=== PATIENT | female | born 2000 | race Caucasian/White ===

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

== ENCOUNTER 2018-01-10 16:17 | Emergency (ER) | payer MEDICAID ==
[2018-01-10] MEDS ORDERED: SODIUM CHLORIDE 0.9% 1,000 ML IV STA ×2 (17:48)
--- NOTE | 2018-01-10 17:52 | ED ---
Chest Pain HPI - General Chief Complaint: Chest Pain Stated Complaint: Heart Racing Time Seen by Provider: 01/10/18 17:43 Source: patient, RN notes reviewed, old records reviewed Mode of arrival: ambulatory Limitations: no limitations - History of Present Illness Initial Comments: 17-year-old female presents emergency department today chief complaint of chest pain and episodes of shortness breath and heart racing that started at 11 AM today. Patient reports that she did feel somewhat nauseous at the time this occurred. She did feel somewhat dizzy and lightheaded. She denies any or drink very much today. She denies any episodes of vomiting. She does have history of VSD. 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 No history of asthma. She is an occasional smoker. Denies any other symptoms at this time. - Related Data Allergies Allergy/AdvReac Type Severity Reaction Status Date / Time No Known Allergies Allergy Verified 01/10/18 16:52 Review of Systems ROS Statement: Those systems with pertinent positive or pertinent negative responses have been documented in the HPI. ROS Other: All systems not noted in ROS Statement are negative. EKG Findings - EKG Comments: EKG Findings:: EKG performed at 1646 shows normal sinus rhythm normally daily. Ventricularly of 83 bpm. NE interval is 136 ms. QRS religious 90 ms. QT QTc is 358/420 ms. No evidence of ST elevation or T-wave inversion. No evidence of atrial ventricular arrhythmias. Past Medical History Past Medical History: No Reported History Additional Past Medical History / Comment(s): VSD History of Any Multi-Drug Resistant Organisms: None Reported Past Surgical History: No Surgical Hx Reported Past Psychological History: No Psychological Hx Reported Smoking Status: Current some day smoker Past Alcohol Use History: Rare Past Drug Use History: None Reported General Exam - General Exam Comments Initial Comments: This is a 17-year-old female. Alert and oriented. No acute distress. Limitations: no limitations General appearance: alert, in no apparent distress Head exam: Present: atraumatic, normocephalic, normal inspection Eye exam: Present: normal appearance, PERRL, EOMI. Absent: scleral icterus, conjunctival injection, periorbital swelling ENT exam: Present: normal exam, mucous membranes moist Neck exam: Present: normal inspection Respiratory exam: Present: normal lung sounds bilaterally. Absent: respiratory distress, wheezes, rales, rhonchi, stridor Cardiovascular Exam: Present: normal rhythm, normal heart sounds, systolic murmur. Absent: diastolic murmur, rubs, gallop, clicks GI/Abdominal exam: Present: soft, normal bowel sounds. Absent: distended, tenderness, guarding, rebound, rigid Extremities exam: Present: normal inspection, full ROM, normal capillary refill. Absent: tenderness, pedal edema, joint swelling, calf tenderness Back exam: Present: normal inspection Neurological exam: Present: alert, oriented X3, CN II-XII intact Psychiatric exam: Present: normal affect, normal mood Skin exam: Present: warm, dry, intact, normal color. Absent: rash Course Vital Signs 01/10/18 01/10/18 16:49 19:00 Temperature 98.3 F Pulse Rate 89 84 Respiratory 18 18 Rate Blood Pressure 120/77 122/83 O2 Sat by Pulse 98 97 Oximetry Chest Pain MDM - MDM This Patient 17-year-old female presents with episodes of heart racing chest pain earlier today. She reports the symptoms started resolving upon arrival. Patient states that she's had no fevers or chills no other symptoms. At this time she reports just feels very tired. She does report that she has been quite anxious that she is moving in the next couple weeks. Did a cardiac workup on her. EKG was reviewed and normal. Vital signs are stable. Troponins negative. I did test and d-dimer. Status of his mildly elevated. She denies any leg pain or any other symptoms concerning for a blood clot appearance on any control. Patient states that she refuses CT at this time. I discussed that with her symptoms resolving she feels by the time very low probability of positive for blood clot. Patient agrees. She will follow up with primary care physician. All questions answered return parameters were discussed. Chest x-rays negative for any acute process. Disposition Clinical Impression: Atypical chest pain, Dizziness Disposition: HOME SELF-CARE Condition: Good Instructions: Chest Pain (ED), Generalized Anxiety Disorder (ED) Additional Instructions: Patient has a follow-up with primary care physician within the next 1-2 days. Return to emergency department if any alarming signs or symptoms occur. Is patient prescribed a controlled substance at d/c from ED?: No When asked, does pt state using other controlled substances?: No If prescribed controlled substance>3 days was MAPS reviewed?: No If opioid is for acute pain is fill amount 7 days or less?: No If Rx opioid, was Start Talking consent form obtained?: No Referrals: Jose E Madden MD [Primary Care Provider] - 1-2 days Time of Disposition: 19:37
[2018-01-10 18:43] LABS: Basophils % (A) 1 %; Eosinophils # (A) 0.1 k/uL (0-0.7); Eosinophils % (A) 2 %; HCT 40.2 % (34.0-46.0); HGB 13.8 gm/dL (11.4-16.0); Lymphocytes # (A) 2.6 k/uL (1.0-4.8); Lymphocytes % (A) 38 %; MCH 29.6 pg (25.0-35.0); MCHC 34.2 g/dL (31.0-37.0); MCV 86.4 fL (80.0-100.0); Mean Platelet Volume 6.8; Monocytes # (A) 0.4 k/uL (0-1.0); Monocytes % (A) 6 %; Neutrophils # (A) 3.4 k/uL (1.3-7.7); Neutrophils % (A) 51 %; Platelet Count 276 k/uL (150-450); RBC 4.65 m/uL (3.80-5.40); RDW 13.9 % (11.5-15.5); WBC 6.8 k/uL (4.0-11.0)
[2018-01-10 18:50] LABS: ALT 23 U/L (9-52); AST 17 U/L (14-36); Alkaline Phosphatase 44 U/L (38-126); Anion Gap 11 mmol/L; Blood Urea Nitrogen 9 mg/dL (7-17); Calcium 9.7 mg/dL (8.4-10.2); Carbon Dioxide 22 mmol/L (22-30); Chloride 109 mmol/L (98-107); Glucose 93 mg/dL (74-99); Potassium 4.3 mmol/L (3.5-5.1); Sodium 142 mmol/L (137-145); Total Bilirubin 0.2 mg/dL (0.2-1.3); Total Protein 6.5 g/dL (6.3-8.2)
[2018-01-10 19:00] LABS: Creatine Kinase 113 U/L (30-135)
[2018-01-10 19:11] LABS: INR 0.9 (<1.2); Partial Thromboplastin Time 23.2 sec (22.0-30.0); Prothrombin Time 9.4 sec (9.0-12.0)
[2018-01-10 19:12] LABS: Creatine Kinase MB 0.4 ng/mL (0.0-2.4); Troponin I <0.012 ng/mL (0.000-0.034)
[2018-01-10 19:15] LABS: D-Dimer 0.68 mg/L FEU (<0.60)
--- NOTE | 2018-01-10 19:33 | XR ---
EXAMINATION: XR chest 2V DATE AND TIME: 01/10/2018 6:48 PM ORDERING PROVIDER: Lisa Chavira CLINICAL INDICATION: Chest pain with dyspnea TECHNIQUE: PA and lateral DESCRIPTION: The lungs are clear. The pleural spaces are negative. The cardiac silhouette is not enlarged. The mediastinal and pleural silhouettes are unremarkable. The skeletal structures are intact without focal findings. The soft tissues are unremarkable. IMPRESSION: NO ACUTE PROCESS.
[2018-01-10 19:57] VITALS: BP 127/69; PULSE 83; RESP 17; TEMP 98.6
== END 2018-01-10 19:57 | disposition home or self-care (01) ==
LOC: EC 16:17
DX: R07.89 Other chest pain (principal); R42 Dizziness and giddiness; R11.0 Nausea; R00.2 Palpitations; F17.200 Nicotine dependence, unspecified, uncomplicated
CPT/HCPCS: 36415; 71046; 80053; 82550; 82553; 83735; 84484; 85025; 85379; 85610; 85730; 93005; 96360; 99285